=== PATIENT | female | born 1940 | race Caucasian/White ===

== ENCOUNTER → 2021-04-02 | Outpatient (CLI) | payer OTHER | LOC: M.MRI 07:55 | PROVIDERS: ATTEND Podiatrist | DX: Z01.818 Encounter for other preprocedural examination (principal); M86.8X7 Other osteomyelitis, ankle and foot; M20.12 Hallux valgus (acquired), left foot; M86.8X8 Other osteomyelitis, other site; M19.072 Primary osteoarthritis, left ankle and foot ==